=== PATIENT | female | born 1970 | race Caucasian/White ===

== ENCOUNTER 2016-06-04 09:20 | Emergency (ER) | payer OTHER ==
[2016-06-04 09:50] VITALS: BP 118/82
--- OUTSIDE RECORDS SUMMARY | 2016-06-04 10:06 | XMS REPORT | Continuity of Care Document ---
:1970 Author Organization [facility] ([facility]) Address [address] [place] [address] Phone [phone] Care Team Providers Name Role Phone Alix Bradley Primary Care Provider [phone] Source Comments This disclosure is being made pursuant to the Care Everywhere program, applicable federal and state laws, and may not contain all informaitonavailable regarding this patient.[facility] ([facility]) Active Allergies and Adverse Reactions Allergen Noted Date Severity Reactions Comments Codeine 06/09/2014 Nausea & Vomiting Current Medications Prescription Sig. Disp. Refills Start Date End Date Status amitriptyline 25 mg tablet Take 25-50 mg by Active mouth at bedtime. LEVOTHYROXINE 100 mcg Take 1 tablet by 12/10/2014 Active tablet mouth daily PANTOPRAZOLE 40 mg EC Take 1 tablet by 12/25/2014 Active tablet mouth daily cholecalciferol (VITAMIN Take 2,000 Units Active D3) 2,000 unit tablet by mouth daily DOCUSATE CALCIUM (STOOL Take 1 tablet by Active SOFTENER PO) mouth daily Active Problems Problem Noted Date Hypothyroidism 06/09/2014 Chronic left hip pain 06/09/2014 Social History Tobacco Use Types Packs/Day Years Used Date Never Smoker Smokeless Tobacco: Never Used Tobacco Cessation:Counseling Given: Yes Comments: Alcohol Use Drinks/Week oz/Week Comments No Last Filed Vital Signs Vital Sign Reading Time Taken Blood Pressure 130/79 05/25/2015 8:27 AM VEHICLE SERVICE ATTENDANT Pulse 88 05/25/2015 8:27 AM VEHICLE SERVICE ATTENDANT Temperature 36.7 C (98.1 F) 05/25/2015 8:27 AM VEHICLE SERVICE ATTENDANT Respiratory Rate 18 04/26/2015 4:03 PM VEHICLE SERVICE ATTENDANT Height 1.651 m (5' 5") 05/25/2015 8:27 AM VEHICLE SERVICE ATTENDANT Weight 97.6 kg (215 lb 2.7 oz) 05/25/2015 8:27 AM VEHICLE SERVICE ATTENDANT Body Mass Index 35.81 05/25/2015 8:27 AM VEHICLE SERVICE ATTENDANT Oxygen Saturation 99% 04/26/2015 4:03 PM VEHICLE SERVICE ATTENDANT Plan of Care Health Maintenance Due Date Last Done Comments Hepatitis B Vaccine (1 of 3 - Primary Series) 1970 Tdap Vaccine 1979 Lipid Disorder Screening 1986 MMR Vaccine 1986 Td Vaccine 1986 Cervical Cancer Screening 1998 Mammogram 2008 Influenza Vaccine: Seasonal (#1) 11/15/2015 Results from Last 3 Months Not on file
--- NOTE | 2016-06-04 10:21 | ERNOTE ---
Date of Service: 06/04/16 Time Seen by Provider: 06/04/16 09:55 Stated Complaint: URI Presenting Symptoms:: cough, other - phlegm, sinus congestion, post nasal driip Source: patient Exam Limitations: no limitations Immunizations: IMMUNIZATION HX Immunizations Up to Date Yes History of Influenza Vaccine Yes Hx Pneumococcal Vaccination Yes Allergies/Adverse Reactions: Allergies codeine Adverse Reaction (Intermediate, Verified 06/04/16 09:50) Nausea Home Medications: HOME MEDICATIONS Levothyroxine Sodium [Synthroid] 100 mcg PO DAILY 08/31/13 [Last Taken Unknown] Amitriptyline HCl [Elavil] 50 mg PO HS 05/17/14 [Last Taken Unknown] Cholecalciferol (Vitamin D3) [Vitamin D3] 2,000 unit PO DAILY 01/26/15 [Last Taken Unknown] Multivitamin with Folic Acid [One Daily Multivitamin Tablet] 400 mcg PO DAILY [Last Taken Unknown] Pantoprazole Sodium 40 mg PO DAILY 01/26/15 [Last Taken Unknown] Atorvastatin Calcium 10 mg PO DAILY 11/08/15 [Last Taken Unknown] Lisinopril 5 mg PO DAILY 11/08/15 [Last Taken Unknown] Metformin HCl [Metformin HCl ER] 500 mg PO DAILY 11/08/15 [Last Taken Unknown] Benzonatate [Tessalon Perle] 100 mg PO TID PRN #21 capsule 06/04/16 [Last Taken Unknown] Guaifenesin/Pseudoephedrne HCl [Mucinex D ER 1,200-120 mg Tab] 1 tab PO Q12H PRN #24 tab 06/04/16 [Last Taken Unknown] - History of Present Ilness Narrative: Patient presents to ED via POV with complaints of cough, sinus congestion and runny nose. States she seen her midlevel provider 3 weeks ago and was started on Z pack. States she finished that and still had cough. States she coughs, at times producing thick yellow sputum, and it worsens at night. States she mostly has a dry non productive cough that wont allow her to rest. Denies fever , chills, body aches. Complains of sinus congestion and post nasal drip. Date (Duration): 05/14/16 Timing: constant Severity: mild Frequency/Possible Cause: Reports: frequent episodes. Denies: allergen exposure , exercise, illness exposure, irritant gases exposure, smoke exposure, foreign travel Modifying Factors - Improves: Reports: nothing Modifying Factors - Worsens: Reports: activity, coughing, deep breath Associated Symptoms: Reports: chest pain/soreness, cough, shortness of breath, facial pain, nasal drainage. Denies: wheezing, nasal congestion, dizziness, lightheadedness, earache, headache, sore throat, muscle aches Prior Treatment: Reports: recently seen, treated by physician Review of Systems - Review of Systems Constitutional: Absent: fever, chills, diaphoresis, weakness, fatigue, malaise, weight loss EYE: Absent: eye pain, eye discharge, blurred vision, double vision, vision changes, tearing ENT: Present: nasal drainage, other - sinus congestion. Absent: ear pain, ear discharge, pulling on ears, nose pain, nose congestion, sore throat, throat swelling Respiratory: Present: shortness of breath - after coughing spell, cough. Absent : orthopnea, wheezing Cardiology: Present: chest pain - after coughing spell. Absent: palpitations, syncope, edema Gastrointestinal/Abdominal: Present: no symptoms reported. Absent: nausea, vomiting, diarrhea Genitourinary: Present: no symptoms reported Musculoskeletal: Present: no symptoms reported Skin: Present: no symptoms reported. Absent: rash, dryness Neurological: Present: no symptoms reported Endocrine: Present: no symptoms reported Hematologic/Lymphatic: Present: no symptoms reported Psych: Present: no symptoms reported - Patient's Past Medical History Patient History - Medical: Diabetes Type 2, GERD, Hypothyroidism, Obesity Patient History - Cardiac/Respiratory: Hypertension, Hyperlipidemia Patient History - Cancer: No Hx of Cancer Patient History - Surgical Procedures: Tubal Ligation, T & A Patient History - Other: None - Social History Living Situations: home Abuse History: No History of abuse Psych History: No pertinent hx Smoking Status: Never smoker Have you smoked in the past 12 months: No Alcohol Use: none Drug Use: none - Immunizations Immunizations Up to Date: Yes Hx Pneumococcal Vaccination: Yes History of Influenza Vaccine: Yes Physical Exam - Physical Exam General Appearance: Present: wd/wn, alert, no apparent distress Eye Exam: Normal inspection: bilateral, PERRL: bilateral Ears, Nose, Throat: Present: normal ENT inspection, hearing grossly normal, sinus pain/drainage, pharyngeal erythema. Absent: abnormal TM (R), abnormal TM (L), nasal congestion, normal pharynx, tonsillar exudate, tonsillar swelling, dry mucous membranes Neck: Present: normal inspection, nontender. Absent: lymphadenopathy (R), lymphadenopathy (L) Respiratory: Present: no respiratory distress, normal breath sounds, no accessory muscle use, chest nontender, lungs clear, chest tenderness. Absent: respiratory distress, accessory muscle use Cardiovascular/Chest: Present: regular rate, rhythm, no murmur, normal peripheral pulses Peripheral Pulses: N=norm/S=strong/W=weak/B=bound/A=absent: Radial (R): Normal, Radial (L): Normal Gastrointestinal/Abdominal: Present: normal bowel sounds, nontender, nondistended, soft, no organomegaly Rectal Exam: Present: deferred Back Exam: Present: normal inspection Extremity Exam: Present: normal inspection, non-tender, no edema, normal range of motion Neurological Exam: Present: alert, oriented, normal mood/affect, no motor/ sensory deficits Skin Exam: Present: normal color, warm/dry. Absent: diaphoresis, cyanosis Lymphatic Exam: Present: no adenopathy Pelvic Exam: Present: deferred ED Progress - Results and Orders Patient's Lab Results:: I have reviewed the patient's lab results. - Vital Signs Patient's Vital Signs:: I have reviewed the patient's vital signs. Vital Signs: Vital Signs 06/04/16 09:46 Pulse Rate 84 Respiratory 16 Rate Blood Pressure 118/82 O2 Sat by Pulse 97 Oximetry - Progress/Reassessment Chief Complaint: Upper Respiratory Symptoms Progress:: Unchanged Departure - Departure Clinical Impression: Upper respiratory infection, viral, Cough Disposition: Home Follow Up Needed Condition: Good Instructions: Upper Respiratory Infection, Adult, [id number] Additional Instructions: Drink fluids, especially water/Gatorade. Tessalon Perles can make you drowsy-- no alcohol or driving. Use humidifier at night during sleep. Honey mixed in with warm tea to help cough/chest discomfort Prescriptions: Benzonatate [Tessalon Perle] 100 mg PO TID PRN #21 capsule PRN Reason: Cold Symptoms Guaifenesin/Pseudoephedrne HCl [Mucinex D ER 1,200-120 mg Tab] 1 tab PO Q12H PRN #24 tab PRN Reason: Congestion
== END 2016-06-04 10:31 | disposition home or self-care (01) ==
LOC: ER 09:20
DX: J06.9 Acute upper respiratory infection, unspecified (principal); R05 Cough

== ENCOUNTER 2016-07-02 15:46 | Emergency (ER) | payer OTHER ==
[2016-07-02 16:03] VITALS: BP 142/78
--- OUTSIDE RECORDS SUMMARY | 2016-07-02 16:25 | XMS REPORT | Continuity of Care Document ---
:1970 Author Organization [facility] ([facility]) Address [address] [place] [address] Phone [phone] Care Team Providers Name Role Phone Alix Bradley Primary Care Provider [phone] Source Comments This disclosure is being made pursuant to the Care Everywhere program, applicable federal and state laws, and may not contain all informaitonavailable regarding this patient.[facility] ([facility]) Active Allergies and Adverse Reactions Allergen [...] Taken Blood Pressure 130/79 05/25/2015 8:27 AM TENTER FRAME OPERATOR Pulse 88 05/25/2015 8:27 AM TENTER FRAME OPERATOR Temperature 36.7 C (98.1 F) 05/25/2015 8:27 AM TENTER FRAME OPERATOR Respiratory Rate 18 04/26/2015 4:03 PM TENTER FRAME OPERATOR Height 1.651 m (5' 5") 05/25/2015 8:27 AM TENTER FRAME OPERATOR Weight 97.6 kg (215 lb 2.7 oz) 05/25/2015 8:27 AM TENTER FRAME OPERATOR Body Mass Index 35.81 05/25/2015 8:27 AM TENTER FRAME OPERATOR Oxygen Saturation 99% 04/26/2015 4:03 PM TENTER FRAME OPERATOR Plan of Care Health Maintenance Due Date Last Done Comments Hepatitis B Vaccine (1 of 3 - Primary Series) 1970 Tdap Vaccine 1979 Lipid Disorder Screening 1986 MMR Vaccine 1986 Td Vaccine 1986 Cervical Cancer Screening 1998 Mammogram 2008 Influenza Vaccine: Seasonal (#1) 11/15/2015 Results from Last 3 Months Not on file
[2016-07-02] MEDS ORDERED: LIDOCAINE HCL 20 ML UDC MM ONE (16:40)
--- NOTE | 2016-07-02 16:48 | ERNOTE ---
ENT HPI Date of Service: 07/02/16 Presenting Symptoms: other - sore throat Time Seen by Provider: 07/02/16 16:08 Source: patient Exam Limitations: no limitations - Immun/Allergies/Home Medications Immunizations: IMMUNIZATION HX Immunizations Up to Date Yes History of Influenza Vaccine Yes Hx Pneumococcal Vaccination Yes Allergies/Adverse Reactions: Allergies Allergy/AdvReac Type Severity Reaction Status Date / Time codeine AdvReac Intermediate Nausea Verified 07/02/16 16:03 Home Medications: HOME MEDICATIONS Levothyroxine Sodium [Synthroid] 100 mcg PO DAILY 08/31/13 [Last Taken Unknown] Amitriptyline HCl [Elavil] 50 mg PO HS 05/17/14 [Last Taken Unknown] Multivitamin with Folic Acid [One Daily Multivitamin Tablet] 400 mcg PO DAILY [Last Taken Unknown] Pantoprazole Sodium 40 mg PO DAILY 01/26/15 [Last Taken Unknown] Atorvastatin Calcium 10 mg PO DAILY 11/08/15 [Last Taken Unknown] Lisinopril 5 mg PO DAILY 11/08/15 [Last Taken Unknown] Metformin HCl [Metformin HCl ER] 500 mg PO DAILY 11/08/15 [Last Taken Unknown] Guaifenesin/Pseudoephedrne HCl [Mucinex D ER 1,200-120 mg Tab] 1 tab PO Q12H PRN #24 tab 06/04/16 [Last Taken Unknown] Lidocaine HCl [Lidocaine HCl Viscous 2%] 5 ml MM QID PRN #100 udc NS 07/02/16 [ Last Taken Unknown] - Pain Score Pain Score #1 Pain Score: 6 - History of Present Illness Narrative: patient is a 46 year old female who presents to the ED with complaints of sore throat since 0700 this morning. Patient states she awoke with pain in throat and difficulty swallowing. Denies fever, chills, body aches, NVD. States she has been around friends who were recently diagnosed with strep throat. Was recently treated with Zithromax for chronic cough that she has had >1 month. States she is chronically coughing and expectorating clear sputum Date (Duration): 07/02/16 Time (Timing): 07:00 Severity: Present: mild ENT Location: Present: throat Prearrival Treatment: Present: other - has attempted Sucrets Modifying Factors - Improves: Reports: nothing Modifying Factors - Worsens: Reports: nothing Associated Symptoms - ENT: Reports: cough - chronic, sore throat. Denies: fever , malaise, poor fluid intake, poor solid intake, voice change, drooling, nasal congestion/drainage, facial pain/swelling, tooth pain, jaw swelling, ear drainage, headache Review of Systems - Review of Systems Constitutional: Present: See HPI. Absent: recent illness, fever, chills, diaphoresis, weakness, fatigue, malaise, weight loss EYE: Absent: eye pain, eye discharge ENT: Present: sore throat. Absent: ear pain, ear discharge, nose pain, nose congestion, nasal drainage, throat swelling Respiratory: Present: cough. Absent: shortness of breath Cardiology: Absent: chest pain, palpitations Gastrointestinal/Abdominal: Absent: nausea, vomiting, diarrhea, constipation, abdominal pain, eating less Genitourinary: Present: no symptoms reported Musculoskeletal: Present: no symptoms reported Skin: Present: no symptoms reported. Absent: rash, dryness, lesions Neurological: Present: no symptoms reported Endocrine: Present: no symptoms reported Hematologic/Lymphatic: Present: no symptoms reported Psych: Present: no symptoms reported - Patient's Past Medical History Patient History - Medical: Diabetes Type 2, GERD, Hypothyroidism, Obesity Patient History - Cardiac/Respiratory: Hypertension, Hyperlipidemia Patient History - Cancer: No Hx of Cancer Patient History - Surgical Procedures: Tubal Ligation, T & A, Other Patient History - Other: None LMP (females 10-50): last week - Social History Living Situations: alone Abuse History: No History of abuse Psych History: No pertinent hx Smoking Status: Never smoker Do you dip or chew tobacco: No Alcohol Use: none Drug Use: none - Immunizations Immunizations Up to Date: Yes Hx Pneumococcal Vaccination: Yes History of Influenza Vaccine: Yes Physical Exam - Physical Exam General Appearance: Present: wd/wn, alert, no apparent distress Eye Exam: Normal inspection: bilateral, PERRL: bilateral Ears, Nose, Throat: Present: normal ENT inspection, normal pharynx. Absent: nasal congestion, sinus pain/drainage, pharyngeal erythema, pharyngeal swelling , tonsillar exudate, tonsillar swelling, dry mucous membranes Neck: Present: normal inspection, nontender, full range of motion. Absent: lymphadenopathy (R), lymphadenopathy (L) Respiratory: Present: no respiratory distress, normal breath sounds, no accessory muscle use, chest nontender, lungs clear Cardiovascular/Chest: Present: regular rate, rhythm, no murmur, normal peripheral pulses Peripheral Pulses: N=norm/S=strong/W=weak/B=bound/A=absent: Radial (R): Normal, Radial (L): Normal Gastrointestinal/Abdominal: Present: normal bowel sounds, nontender, nondistended, soft, no organomegaly Rectal Exam: Present: deferred Back Exam: Present: normal range of motion, no CVA tenderness, no vertebral tenderness Extremity Exam: Present: normal inspection, non-tender, normal range of motion, no edema Neurological Exam: Present: alert, oriented, normal mood/affect, no motor/ sensory deficits Skin Exam: Present: normal color, warm/dry Lymphatic Exam: Present: no adenopathy ED Progress - Results and Orders Patient's Lab Results:: I have reviewed the patient's lab results. - Vital Signs Patient's Vital Signs:: I have reviewed the patient's vital signs. Vital Signs: Vital Signs 07/02/16 15:56 Temperature 36.8 C Pulse Rate 87 Respiratory 16 Rate Blood Pressure 142/78 O2 Sat by Pulse 97 Oximetry - Progress/Reassessment Chief Complaint: Sore Throat Progress:: Unchanged Departure Clinical Impression: Viral pharyngitis - Departure Disposition: Home self-care Condition: Good Instructions: Pharyngitis, [id number] Additional Instructions: Continue with salt water gargles. Continue with Sucrets or [place] throat lozenges. Try honey in warm tea for throat relief. Return with worsening pain, fever or difficulty breathing Referrals: Alix Bradley FNP [Primary Care Provider] - Prescriptions: Lidocaine HCl [Lidocaine HCl Viscous 2%] 5 ml MM QID PRN #100 udc NS PRN Reason: throat pain
== END 2016-07-02 16:47 | disposition home or self-care (01) ==
LOC: ER 15:46
DX: J02.9 Acute pharyngitis, unspecified (principal); E11.9 Type 2 diabetes mellitus without complications; K21.9 Gastro-esophageal reflux disease without esophagitis; I10 Essential (primary) hypertension; E03.9 Hypothyroidism, unspecified

== ENCOUNTER 2016-11-03 19:52 | Emergency (ER) | payer SELFPAY ==
[2016-11-03] MEDS ORDERED: LORazepam 2 MG/ML DISP.SYRIN ONE (20:10)
[2016-11-03] MEDS ORDERED: LORazepam 2 MG/ML DISP.SYRIN IV ONE (20:15)
[2016-11-03 20:22] LABS: Hematocrit 42.8 % (37.0-47.0); Hemoglobin 14.7 gm/dL (12.5-16.0); Mean Cell Volume 87.2 fl (78-100); Mean Corpuscular Hemoglobin 29.9 pg (27-31); Mean Corpuscular Hgb Conc 34.3 g/dl (32-36); Mean Platelet Volume 10.8 fl (6.0-9.5); Neutrophil # 9.1 K/mm3 (1.3-6.0); Neutrophil % 67.7 % (42-75.0); Platelet Count 367 K/mm3 (150-450); Red Blood Count 4.91 M/mm3 (4.2-5.4); Red Cell Distribution Width 13.9 % (11.5-14.0); White Blood Count 13.5 K/mm3 (4.0-10.5)
[2016-11-03] MEDS ORDERED: ASPIRIN 81 MG TAB.CHEW PO ONE (20:25)
[2016-11-03 20:31] LABS: Prothrombin Time (Patient) 10.6 Seconds (9.4-11.4)
[2016-11-03 20:33] LABS: INR 1.02 INR (0.90-1.10)
[2016-11-03 20:37] LABS: ALT 29 U/L (19-67); AST 21 U/L (0-48); Albumin * 4.1 gm/dl (3.4-5.0); Alkaline Phosphatase * 83 U/L (50-170); Anion Gap 21.5 mmol/L (6.8-13.8); BUN/Creatinine Ratio 11.6 (9.0-21.6); Bilirubin, Total 0.7 mg/dL (0.0-1.1); Blood Urea Nitrogen 13 mg/dL (3-23); Ca. Corrected For Albumin 9.2 mg/dL (8.4-10.2); Calcium * 9.6 mg/dL (7.9-10.9); Carbon Dioxide 20.2 mmol/L (24-32.6); Chloride 102 mmol/L (97-106); Glucose * 123 mg/dL (70-110); Potassium 3.7 mmol/L (3.4-4.6); Sodium 140 mmol/L (132-142); Total Protein 7.9 gm/dL (6.2-8.2); Troponin I Less than 0.017 ng/ml (0.00-0.10)
[2016-11-03] MEDS ORDERED: ASPIRIN 81 MG TAB.CHEW ONE (20:38)
--- NOTE | 2016-11-03 20:48 | ERNOTE ---
Chest Pain/Cardiac HPI Date of Service: 11/03/16 Chief Complaint: Chest Pain Time Seen by Provider: 11/03/16 20:16 Source: patient Exam Limitations: no limitations Immunizations: IMMUNIZATION HX Immunizations Up to Date Yes History of Influenza Vaccine Yes Hx Pneumococcal Vaccination Yes Allergies/Adverse Reactions: Allergies codeine Adverse Reaction (Intermediate, Verified 11/03/16 20:02) Nausea Home Medications: HOME MEDICATIONS Levothyroxine Sodium [Synthroid] 100 mcg PO DAILY 08/31/13 [Last Taken Unknown] Amitriptyline HCl [Elavil] 50 mg PO HS 05/17/14 [Last Taken Unknown] Multivitamin with Folic Acid [One Daily Multivitamin Tablet] 400 mcg PO DAILY [Last Taken Unknown] Pantoprazole Sodium 40 mg PO DAILY 01/26/15 [Last Taken Unknown] Atorvastatin Calcium 10 mg PO DAILY 11/08/15 [Last Taken Unknown] Lisinopril 5 mg PO DAILY 11/08/15 [Last Taken Unknown] metFORMIN HCL [Metformin HCl ER] 500 mg PO DAILY 11/08/15 [Last Taken Unknown] Narrative: This is a 46-year-old female who comes in in the midst of what appears to be a panic attack. She is speaking with rapid speech and hyperventilating. The patient relates that approximately 1 hour prior to arrival she was cooking in a kitchen but did not have air conditioning. She started to feel extremely hot and then felt short of breath. After a few minutes she said she started to develop pain was behind her sternum as well as tingling in her fingertips. This was both hands, not simply the left. The patient reports that she does have a history of diabetes, high blood pressure, high cholesterol, family history of early cardiac disease. She has had no heart injuries or problems that she is aware of. The patient states that when she got here she started having tingling of her lips, all the fingertips, and the feet. She says she has had a panic attack in the past but "never to this degree". The patient denies any nausea or vomiting. She did have diaphoresis. She did have dyspnea. The patient denies any other complaints. Date (Duration): 11/03/16 Timing: getting worse Severity/Quality: severe, burning, pressure Location: substernal Chest Pain Radiation: no radiation Activities at Onset: other - cooking Modifying Factors - Improves: Present: other - has gotten better with Ativan Modifying Factors - Worsens: Absent: antacids, nitroglycerin, oxygen, morphine, breathing, coughing Nitro Today/Relief: no nitro taken today Aspirin Treatment Today: 81 mg x 4, provided by ED Associated Symptoms: Present: dizziness, shortness of breath Review of Systems - Review of Systems Constitutional: Present: diaphoresis, other - generalized anxiety.. Absent: weakness, fatigue EYE: Present: no symptoms reported ENT: Present: no symptoms reported Respiratory: Present: shortness of breath. Absent: cough, wheezing, stridor Cardiology: Present: chest pain. Absent: palpitations, edema, claudication Gastrointestinal/Abdominal: Present: no symptoms reported. Absent: nausea, vomiting, abdominal pain Genitourinary: Present: no symptoms reported Musculoskeletal: Present: no symptoms reported Skin: Present: no symptoms reported Neurological: Present: tingling Endocrine: Present: no symptoms reported Psych: Present: anxiety, other - significant anxiety and likely panic attack All Other Systems: All systems neg except as marked - Patient's Past Medical History Patient History - Medical: Diabetes Type 2, GERD, Hypothyroidism, Obesity Patient History - Cardiac/Respiratory: Hypertension, Hyperlipidemia Patient History - Cancer: No Hx of Cancer Patient History - Surgical Procedures: Tubal Ligation, T & A, Other Patient History - Other: None - Social History Living Situations: home Abuse History: No History of abuse Psych History: No pertinent hx Smoking Status: Never smoker Alcohol Use: none Drug Use: none - Immunizations Immunizations Up to Date: Yes Hx Pneumococcal Vaccination: Yes History of Influenza Vaccine: Yes Physical Exam - Physical Exam General Appearance: Present: moderate distress, other - extremely anxious Head Exam: Present: normal inspection, no evidence of injury Ears, Nose, Throat: Present: normal ENT inspection Neck: Present: normal inspection, nontender Respiratory: Present: no respiratory distress, normal breath sounds, chest nontender, lungs clear Cardiovascular/Chest: Present: regular rate, rhythm, no murmur, normal peripheral pulses Gastrointestinal/Abdominal: Present: normal bowel sounds, nontender, nondistended, soft Back Exam: Present: normal inspection, no vertebral tenderness Extremity Exam: Present: normal inspection, non-tender, no edema Neurological Exam: Present: alert, oriented, other - patient is severely anxious. Hyperventilating. Rapid speech. Skin Exam: Present: normal color, warm/dry Lymphatic Exam: Present: no adenopathy ED Progress - Results and Orders Patient's Lab Results:: I have reviewed the patient's lab results. - Vital Signs Patient's Vital Signs:: I have reviewed the patient's vital signs. Vital Signs: Vital Signs 11/03/16 11/03/16 11/03/16 19:56 20:21 20:38 Temperature 36.0 C L Pulse Rate 103 H 97 81 Respiratory 24 H 24 H 20 Rate Blood Pressure 151/71 142/89 142/95 O2 Sat by Pulse 89 L 99 97 Oximetry - EKG EKG: NSR EKG read: Interp. by me EKG Comments: Normal sinus rhythm. Indeterminate axis. Normal intervals. No acute ischemic change. There is some fluctuation of the baseline due to anxiety and shaking from the patient. No definite signs of ischemia. - X-Ray X-Ray #1 X-Ray: chest Interpretation: Interp. by me X-ray Comments: No acute cardiopulmonary disease - Progress/Reassessment Chief Complaint: Chest Pain Progress:: Improved Plan - Plan Plan: This is a 46-year-old female with risk factors for coronary artery disease. Her symptomatology presents much more so than anxiety attack. Nevertheless she is an older person with multiple risk factors. We are obtaining an initial set of cardiac enzymes but I am not comfortable letting her go with a very short repeat set. We will obtain troponin at 4 hours. If the delta troponin is going down or stopping the same she will be able to go home. If the delta troponin is going up at all she will need another set of enzymes at 6 hours. Departure - Departure Clinical Impression: Panic anxiety syndrome Disposition: Home self-care Condition: Stable Instructions: Panic Attacks, [id number] Additional Instructions: As we discussed all of the tests and studies done here in the emergency department are normal. Your symptoms when he came to the hospital really do sound most like a panic attack. There is no indication of anything going wrong with her heart. Nevertheless, I think it is important that you follow-up with your family doctor. Somebody with his many risk factors for heart disease as you have should likely get a stress test soon. Talk to your doctor about the anxiety attack and see if other medicines would be indicated. Certainly if you develop new or worrisome symptoms she should return to the ER. Referrals: Alix Bradley, [employer]EL[employer] [Primary Care Provider] -
[2016-11-04 01:04] VITALS: BP 118/75
== END 2016-11-04 01:02 | disposition home or self-care (01) ==
LOC: ER 19:52
DX: F41.0 Panic disorder [episodic paroxysmal anxiety] (principal); E11.9 Type 2 diabetes mellitus without complications; E03.9 Hypothyroidism, unspecified; I10 Essential (primary) hypertension; E78.5 Hyperlipidemia, unspecified; K21.9 Gastro-esophageal reflux disease without esophagitis